=== PATIENT | female | born 1995 | race Caucasian/White ===

== ENCOUNTER 2019-10-14 08:12 | Outpatient (CLI) | payer OTHER ==
--- NOTE | 2019-10-09 12:30 | NUR ---
JT FOR HER TO CALL US BACK ALONG WITH PHONE NUMBER
[~2019-10-14] VITALS: Ht 154.9 cm; Wt 83.7 kg
[~2019-10-14 08:12] MED LIST: MIDOL CAPLET1 EACH PO; NAPROSYN500 MG PO; ZOLOFT 50MG50 MG PO
[2019-10-14 08:30] VITALS: BP 140/76; PULSE 95
[2019-10-14 09:45] VITALS: BP 123/55; PULSE 74; PULSE 77
--- NOTE | 2019-10-14 09:45 | NUR ---
Pt to [facility] per cart s/p LP. Pt resting well.
[2019-10-14 10:00] VITALS: BP 117/43; PULSE 70
[2019-10-14 10:15] VITALS: BP 112/53; PULSE 77
[2019-10-14 10:30] VITALS: BP 104/60; PULSE 71
[2019-10-14 10:45] VITALS: BP 108/72; PULSE 68
--- NOTE | 2019-10-14 11:00 | NUR ---
Pt has ambulated and voided.
--- NOTE | 2019-10-14 11:10 | NUR ---
Pt discharged per w/c by nurse with friend.
[2019-10-14 11:43] LABS: GLUCOSE,CSF 51 mg/dL (40-70); TOTAL PROTEIN,CSF 20 mg/dL (15-45)
[2019-10-14 13:02] LABS: CSF APPEARANCE CLEAR; CSF COLOR COLORLESS; CSF MONONUCLEAR 0 % (70-100); CSF POLYMORPHONUCLEAR 0 % (0-6); CSF RBC 3 /mm3 (0-0)
== END 2019-10-14 11:59 | disposition home or self-care (01) ==
LOC: COL.RAD 08:12
PROVIDERS: Psychiatry & Neurology Neurology
DX: H46.9 Unspecified optic neuritis (principal)